=== PATIENT | female | born 1975 | race Hispanic/Latino ===

== ENCOUNTER 2023-08-21 12:26 | Emergency (ER) | payer OTHER ==
[~2023-08-21] VITALS: Ht 146.1 cm; Wt 83.0 kg
[2023-08-21] MEDS ORDERED: KETOROLAC TROMETHAMINE 30 MG/ML VIAL IV STA ×2 (12:58→13:24)
[2023-08-21] MEDS ORDERED: ONDANSETRON HCL INJ 2MG/ML 2ML 2 MG/ML VIAL IV STA ×2 (12:58→14:31)
[2023-08-21] MEDS ORDERED: SODIUM CHLORIDE 0.9% 1000ML 1,000 ML IV ONE (13:00)
[2023-08-21] MEDS ORDERED: SODIUM CHLORIDE 0.9% 1000ML 1,000 ML ONE (13:07)
[2023-08-21] MEDS ORDERED: KETOROLAC TROMETHAMINE 30 MG/ML VIAL ONE (13:07)
[2023-08-21] MEDS ORDERED: ONDANSETRON HCL INJ 2MG/ML 2ML 2 MG/ML VIAL ONE ×2 (13:07→14:44)
[2023-08-21] MEDS ORDERED: IOPAMIDOL 370 MG/ML 100 ML INFUS..BTL INJ ONE (13:26)
[2023-08-21] MEDS ORDERED: CEFTRIAXONE 1 GM VIAL ONE (14:44)
[2023-08-21] MEDS ORDERED: SODIUM CHLORIDE 0.9% 100 ML ONE (14:44)
[2023-08-21 15:05] VITALS: O2SAT 96
[2023-08-21] MEDS ORDERED: CEFUROXIME500 MG PO (16:03)
[2023-08-21] MEDS ORDERED: ONDANSETRON ODT4 MG PO (16:03)
[2023-08-21] MEDS ORDERED: KETOROLAC TROME10 MG PO (16:05)
== END 2023-08-21 16:27 | disposition home or self-care (01) ==
LOC: FSED 12:31
DX: M54.50 Low back pain, unspecified (principal); N12 Tubulo-interstitial nephritis, not specified as acute or chronic; K57.90 Diverticulosis of intestine, part unspecified, without perforation or abscess without bleeding; K76.0 Fatty (change of) liver, not elsewhere classified; Z85.3 Personal history of malignant neoplasm of breast
CPT/HCPCS: 74177; 80048; 80076; 81003; 87086; 96374; 96375; 96376; 99284; J0696; J1885; J2405; J7030; J7050; Q9967; 87186